=== PATIENT | female | born 1970 | race Caucasian/White ===

== ENCOUNTER 2016-08-15 23:45 | Emergency (ER) | payer BC ==
[2016-08-16 01:18] LABS: BASOPHILS 0.2 %; BASOPHILS ABSOLUTE 0.03 10/3/uL (0.0-0.16); EOSINOPHILS 1.1 %; EOSINOPHILS ABSOLUTE 0.13 10/3/uL (0.0-0.53); ER CBC TAT 0 Hrs 05 Mins; HEMATOCRIT 42.5 % (36.0-48.0); HEMOGLOBIN 14.7 g/dL (12.0-16.0); IMMATURE GRANULOCYTES 0.2 %; IMMATURE GRANULOCYTES ABSOLUTE 0.02 10/3/uL (0.0-0.11); LYMPHOCYTES 39.7 %; LYMPHOCYTES ABSOLUTE 4.85 10/3/uL (0.67-4.30); MEAN CORPUSCULAR HEMOGLOB 30.4 pg (26.0-34.0); MEAN CORPUSCULAR VOLUME 87.8 fL (80-100); MONOCYTES 5.2 %; MONOCYTES ABSOLUTE 0.64 10/3/uL (0.21-1.20); NEUTROPHILS 53.6 %; NEUTROPHILS ABSOLUTE 6.55 10/3/uL (2.02-8.40); PLATELET COUNT 333 10/3/uL (150-400); RBC DISTRIBUTION WIDTH 13.6 % (12.0-16.0); RED CELL COUNT 4.84 10/6/uL (4.0-5.6); WHITE BLOOD CELLS 12.2 10/3/uL (4.5-10.5)
[2016-08-16 01:20] LABS: MANUAL DIFF NO %; MEAN CORPUS HGB CONC 34.6 g/dL (32.0-36.0)
[2016-08-16 01:34] LABS: BUN (BLOOD UREA NITROGEN) 13 MG/DL (6-23); CALCIUM, SERUM 9.4 MG/DL (8.5-10.4); CHEST PAIN PROFILE TAT 0 Hrs 21 Mins; CHLORIDE, SERUM 108 MMOL/L (96-112); CO2 (CARBON DIOXIDE) 26 MMOL/L (24-34); CREATININE 0.85 MG/DL (0.55-1.02); GFR AFRICAN AMERICAN 95 ML/MIN (>=60); GFR NON AFRICAN AMERICAN 82 ML/MIN (>=60); POTASSIUM, SERUM 3.6 MMOL/L (3.5-5.3); SODIUM, SERUM 144 MMOL/L (135-148); TROPONIN I <0.02 NG/ML (<0.05)
[2016-08-16 01:38] LABS: GLUCOSE, SERUM 133 MG/DL (60-99)
[2016-08-16 01:39] LABS: PROTIME (NOT ORD) 12.9 SEC (12.0-14.5)
[2016-08-16 01:40] LABS: PARTIAL THROMBO TIME 31.1 SEC (22.5-37.2)
== END 2016-08-16 02:40 | disposition left against medical advice (07) ==
LOC: ER 23:45
PROVIDERS: Specialist
DX: R51 Headache (principal); I10 Essential (primary) hypertension; J44.9 Chronic obstructive pulmonary disease, unspecified; F17.200 Nicotine dependence, unspecified, uncomplicated; Z88.8 Allergy status to other drugs, medicaments and biological substances
CPT/HCPCS: 70450; 71010; 80048; 83735; 84484; 85025; 85610; 85730; 93005; 99285; A9270-GY